=== PATIENT | male | born 1970 | race Caucasian/White ===

== ENCOUNTER 2021-04-22 15:08 | Emergency (ER) | payer BC, SELFPAY ==
[2021-04-22 15:23] VITALS: PULSE 89; RESP 18; TEMP 36.6; O2SAT 99
[2021-04-22 15:43] LABS: Add Urine Microscopic? YES; Appearance Urine Clear (Clear); Bilirubin Urine Negative (Negative); Blood Urine Negative (Negative); Color Urine Straw (Yellow); Glucose Urine UA Negative (Negative); Ketones Urine Negative (Negative); Leukocyte Esterase Ur 1+ LEU/UL (Negative); Mucus Urine Rare /lpf; Nitrate Urine Negative (Negative); Protein Urine Negative (Negative); RBC Urine 0-2 /hpf (0-2); Specific Grav Ur 1.005 (1.001-1.035); Urobilinogen Urine Negative mg/dL (<2.0); WBC Urine 0-3 /hpf
--- NOTE | 2021-04-22 17:32 | ED.MALEGU ---
HPI - Male Genitourinary General Chief complaint: Urogenital-Male Stated complaint: UTI Time Seen by Provider: 04/22/21 16:53 Source: patient Mode of arrival: ambulatory Limitations: no limitations History of Present Illness HPI Narrative: This is a 50-year-old male that presents the emergency department for dysuria x3 days. Reports history of urinary tract infections and this feels similar. Does report concern for possible STDs. Denies fever, abdominal pain, vomiting, rashes, or abnormal penile discharge. Related Data Allergies Allergy/AdvReac Type Severity Reaction Status Date / Time No Known Allergies Allergy Mild Verified 08/25/20 14:12 Review of Systems Review of Systems: Narrative: CONSTITUTIONAL: Denies fever GASTROINTESTINAL: Denies abdominal pain, nausea, vomiting GENITOURINARY: Reports dysuria. Denies hematuria. SKIN: Denies rash All systems reviewed & are unremarkable except as noted in HPI and below PMFSH Past Medical History Medical History (Updated 04/22/21 @ 17:39 by Britt Soto PA-C) Erectile dysfunction Hyperlipidemia Family History Family History Mother Family history of emphysema Father Patient's father is Sibling Patient's brother is in good health Social History Social History Smoking status: Never smoker Second hand tobacco smoke exposure: No Alcohol intake: current Drinks per week: 8 Substance use: never Gender identity (if verbalized by the patient): Male Exam Narrative: Exam Narrative: GENERAL: Well-appearing, well-nourished, and in no acute distress. HEAD: Normocephalic, atraumatic. EYES: EOMI. CHEST: Clear to auscultation. No respiratory distress. No wheezes rales or rhonchi HEART: Regular rate and rhythm. No murmur heard. Normal peripheral pulses. ABDOMEN: Soft, nontender, nondistended, normal active bowel sounds. EXTREMITIES: Normal range of motion. No edema. SKIN: Warm, dry, no rash. NEURO: No focal deficits. Alert and oriented x3. PSYCH: Normal mood and affect MALE : Patient refused Course Vital Signs Vital signs: Vital Signs Temperature 98 F 04/22/21 15:23 Pulse Rate 89 04/22/21 15:23 Respiratory Rate 18 04/22/21 15:23 Pulse Oximetry 99 04/22/21 15:23 Temperature 98 F 04/22/21 15:23 Pulse Rate 89 04/22/21 15:23 Respiratory Rate 18 04/22/21 15:23 Pulse Oximetry 99 04/22/21 15:23 MDM - Male Genitourinary MDM Narrative Medical decision making narrative: Patient presents to the emergency department for dysuria noted over the last couple of days. He is afebrile and nontoxic-appearing. UA is without evidence of urinary tract infection. Chlamydia, gonorrhea and trichomonas were sent. Patient would like to be presumptively treated. He is to follow-up with primary care doctor. He was given warnings to return to the ER Lab Data Attestation: I reviewed the patient's lab results. Labs: Lab Results 04/22/21 04/22/21 Range/Units 15:28 17:26 Urine Color Straw (Yellow) Urine Appearance Clear (Clear) Urine pH 9.0 (5.0-9.0) Ur Specific [place] 1.005 (1.001-1.035) Urine Protein Negative (Negative) mg/dL Urine Glucose (UA) Negative (Negative) mg/dL Urine Ketones Negative (Negative) mg/dL Ur Blood (Man) Negative (Negative) Urine Nitrate Negative (Negative) Urine Bilirubin Negative (Negative) Urine Urobilinogen Negative (<2.0) mg/dL Leukocyte Esterase Rfl 1+ H (Negative) GRACIE/UL Urine RBC 0-2 (0-2) /hpf Urine WBC 0-3 /hpf Urine Mucus Rare /lpf C.trachomatis RNA (TMA) Pending N.gonorrhoeae RNA (TMA) Pending T. vaginalis Amp RNA Pending Critical Care Time Critical Care Time Critical Care Time: No Discharge Plan Discharge Clinical Impression: Concern about STD in male without diagnosis Patient Di
== END 2021-04-22 18:02 | disposition home or self-care (01) ==
PROVIDERS: Emergency Medicine; Physician Assistant; Emergency Provider Emergency Medicine; PCP Internal Medicine
DX: R30.0 Dysuria (principal); E78.5 Hyperlipidemia, unspecified
CPT/HCPCS: 81001; 87491; 87591; 87661; 99283